=== PATIENT | female | born 1975 | race Two or more races ===

== ENCOUNTER 2017-03-08 18:14 | Emergency (ER) | payer OTHER ==
[~2017-03-08] VITALS: Ht 157.5 cm; Wt 65.8 kg
[2017-03-08 18:23] VITALS: BP 137/78
[2017-03-12 09:45] LABS: Hepatitis B Surface Antibody Negative
== END 2017-03-08 22:52 | disposition home or self-care (01) ==
LOC: ER 18:14
DX: S51.831A Puncture wound without foreign body of right forearm, initial encounter (principal); W46.0XXA Contact with hypodermic needle, initial encounter; Y93.89 Activity, other specified; Y99.0 Civilian activity done for income or pay; Y92.89 Other specified places as the place of occurrence of the external cause; Z77.21 Contact with and (suspected) exposure to potentially hazardous body fluids
CPT/HCPCS: 36415; 86703; 86706; 86803; 87340

== ENCOUNTER → 2017-04-26 | Outpatient (CLI) | payer OTHER ==
[2017-04-26 12:02] LABS: Hepatitis B Surface Antibody Negative
[2017-04-26 12:13] LABS: Hepatitis B Surface Antigen Negative (Negative)
[2017-04-26 12:41] LABS: Hepatitis B Core Total AB Negative; Hepatitis C Antibody Negative (Negative)
== END | disposition home or self-care (01) ==
LOC: LAB 10:39
PROVIDERS: ATTEND Nurse Practitioner
DX: Z01.89 Encounter for other specified special examinations (principal)
CPT/HCPCS: 36415; 86704; 86706; 86803; 87340